=== PATIENT | male | born 1985 | race Caucasian/White ===

== ENCOUNTER 2017-05-08 09:48 | Emergency (ER) | payer BC ==
[2017-05-08 09:50] VITALS: BP 140/77
--- NOTE | 2017-05-08 10:20 | PHYS DOC ---
Past History Past Medical History: No Pertinent History Alcohol Use: None Drug Use: None Adult General Chief Complaint Chief Complaint: LACERATION/AVULSION HPI HPI 32-year-old male with no significant past medical history now status post minor injury to right hand and thumb. Patient was using a drill when the drill bit spun around and caused a deep scratch on his right thenar eminence. Minimal bleeding. No gross contamination. Now hemostatic. Patient also sustained a small injury of the radial aspect of his right thumb under the fingernail where a tiny amount of tissue was bluntly dissected or avulsed away from the fingernail. There is no subungual hematoma or actual fingernail avulsion just a small amount of dried blood in that area. Patient states his tetanus is up-to- date. He has normal strength, sensation and range of motion of the entire hand and thumb. No other complaint or injury Review of Systems Review of Systems Constitutional: Denies fever or chills [] Eyes: Denies change in visual acuity, redness, or eye pain [] HENT: Denies nasal congestion or sore throat [] Respiratory: Denies cough or shortness of breath [] Cardiovascular: No additional information not addressed in HPI [] GI: Denies abdominal pain, nausea, vomiting, bloody stools or diarrhea [] : Denies dysuria or hematuria [] Musculoskeletal: Denies back pain or joint pain [] Integument: Denies rash or skin lesions [] Neurologic: Denies headache, focal weakness or sensory changes [] Endocrine: Denies polyuria or polydipsia [] Physical Exam Physical Exam Trace amount of blood on the radial aspect of right thumbnail at the distal margin however this is hemostatic and there is no evidence of significant avulsion or subungual hematoma. 2 cm superficial excoriation right thenar eminence hemostatic on exam with no hematoma. Patient has normal painless range of motion, use, and function of the entire hand and thumb. Constitutional: Well developed, well nourished, no acute distress, non-toxic appearance. [] HENT: Normocephalic, atraumatic, bilateral external ears normal, oropharynx moist, no oral exudates, nose normal. [] Eyes:, conjunctiva normal, no discharge. [] Neck: Normal range of motion, no tenderness, supple, no stridor. [] Cardiovascular: No tachycardia [] Lungs & Thorax: Normal respiratory effort with no tachypnea [] Abdomen: Nondistended abdomen Skin: Warm, dry, no erythema, no rash. [] Back: Normal-appearing] Extremities: No tenderness, no cyanosis, no clubbing, ROM intact, no edema. [] Neurologic: Alert and oriented X 3, normal motor function, normal sensory function, no focal deficits noted. [] Psychologic: Affect normal, judgement normal, mood normal. [] Current Patient Data Vital Signs Vital Signs Date Time Temp Pulse Resp B/P (MAP) Pulse Ox O2 Delivery O2 Flow Rate FiO2 05/08/17 09:50 98.0 78 18 99 Room Air EKG EKG [] Radiology/Procedures Radiology/Procedures [] Course & Med Decision Making Course & Med Decision Making Pertinent Labs and Imaging studies reviewed. (See chart for details) Signs and symptoms consistent with minor superficial excoriation which is hemostatic and very minor avulsion injury with trace bleeding under the right thumbnail radial aspect. His hand is neurovascularly intact. Patient irrigated under the sink. No further workup or treatment indicated. Patient's tetanus is up to date. No further workup or treatment indicated. Patient agrees with outpatient follow-up. Strict return precautions given [] Dragon Disclaimer Dragon Disclaimer This chart was dictated in whole or in part using Voice Recognition software in a busy, high-work load, and often noisy Emergency Department environment. It may contain unintended and wholly unrecognized errors or omissions. Departure Departure: Disposition: 01 HOME, SELF-CARE Condition: GOOD Referrals: [facility] APRN (PCP) Patient Instructions: Laceration Care, Adult Additional Instructions: You have a small excoriation of your right hand. Excoriation is a superficial laceration that bleeds but does not require any wound repair like a deep scratch. It appears the you have a small avulsion of your nailbed of the right thumb. An avulsion is when the skin is old away from the nail from a blunt injury. This too does not require any repair but may be sore while its healing. Apply antibiotic ointment as needed well healing for comfort and to school dirt from the wounds. Cover as needed. Follow-up with your doctor in 2 days for wound check and return for signs of infection. ALEXANDER GERONIMO MD May 08, 2017 10:20
== END 2017-05-08 10:24 | disposition home or self-care (01) ==
LOC: ER 09:48
DX: S61.101A Unspecified open wound of right thumb with damage to nail, initial encounter (principal); W22.8XXA Striking against or struck by other objects, initial encounter; Y93.89 Activity, other specified; Y99.8 Other external cause status; Y92.89 Other specified places as the place of occurrence of the external cause
CPT/HCPCS: 99283

== ENCOUNTER 2021-05-17 13:10 | Emergency (ER) | payer BC ==
[~2021-05-17] VITALS: Ht 180.3 cm; Wt 122.0 kg
[2021-05-17 13:15] VITALS: BP 150/93
[2021-05-17] MEDS ORDERED: IV NORMAL SALINE 1,000ML 1,000 ML IV ONE (13:30)
--- NOTE | 2021-05-17 13:40 | PHYS DOC ---
Past History Past Medical History: No Pertinent History Past Surgical History: No Surgical History Alcohol Use: None Drug Use: None General Adult EDM: Chief Complaint: BLOODY STOOL HPI: HPI: 36-year-old male presents with bloody diarrhea. The patient started having diarrhea on Tuesday, nearly once an hour yesterday and then this morning. His last 3 episodes today had blood in them. It started as a pink tinge and became more daysi blood in the last 2 bowel movements. This made him concerned so he decided to come to the ER. Patient denies any new water sources such as a well or drinking stream. He has had no significant travel. He did have animal feces spilled onto him 6 days ago on Tuesday. He has not had symptoms like this before. He denies history of ulcerative colitis or Crohn's. He has also had a fever which improves with Tylenol. Review of Systems: Review of Systems: Constitutional: Fever Eyes: Denies change in visual acuity HENT: Denies nasal congestion or sore throat Respiratory: Denies cough or shortness of breath Cardiovascular: Denies chest pain or edema GI: Bloody diarrhea : Denies dysuria Musculoskeletal: Denies back pain or joint pain Integument: Denies rash Neurologic: Denies headache, focal weakness or sensory changes Endocrine: Denies polyuria or polydipsia Lymphatic: Denies swollen glands Psychiatric: Denies depression or anxiety Current Medications: Current Meds: Current Medications Medications (Trade) Dose Ordered Sig/Rafael Start Time Stop Time Status Last Admin Dose Admin Sodium Chloride 1,000 ml @ 1,000 mls/hr 1X ONCE 05/17/21 13:30 05/17/21 14:29 UNV Physical Exam: PE: Constitutional: Well developed, well nourished, no acute distress, non-toxic appearance. [] HENT: Normocephalic, atraumatic, bilateral external ears normal, oropharynx moist, no oral exudates, nose normal. [] Eyes: PERRLA, EOMI, conjunctiva normal, no discharge. [] Neck: Normal range of motion, no tenderness, supple, no stridor. [] Cardiovascular: Heart rate regular rhythm, no murmur [] Lungs & Thorax: Bilateral breath sounds clear to auscultation [] Abdomen: Bowel sounds normal, soft, mild right upper quadrant tenderness, no masses, no pulsatile masses. [] Skin: Warm, dry, no erythema, no rash. [] Back: No tenderness, no CVA tenderness. [] Extremities: No tenderness, no cyanosis, no clubbing, ROM intact, no edema. [] Neurologic: Alert and oriented X 3, normal motor function, normal sensory function, no focal deficits noted. [] Psychologic: Affect normal, judgement normal, mood normal. [] Current Patient Data: Vital Signs: Vital Signs Date Time Temp Pulse Resp B/P (MAP) Pulse Ox O2 Delivery O2 Flow Rate FiO2 05/17/21 13:15 98.2 69 16 150/93 98 Room Air EKG: EKG: [] Radiology/Procedures: Radiology/Procedures: [] Impressions: CT abdomen pelvis with contrast dated 05/17/2021. No comparison available. Clinical data indication: Bloody diarrhea. TECHNIQUE: Per contiguous axial imaging the abdomen pelvis performed after the administration of intravenous Omnipaque 300. One or more of the following individualized dose reduction techniques were utilized for this examination: 1. Automated exposure control 2. Adjustment of the mA and/or kV according to patient size 3. Use of iterative reconstruction technique FINDINGS: Limited images of the lung bases are clear. Heart size within normal limits. No pleural or pericardial effusion. Liver is of diffuse low density compatible with fatty infiltration. No apparent mass. Biliary tree normal in caliber. Gallbladder unremarkable. Spleen is normal in size. Pancreas, adrenal glands and kidneys are unremarkable. No hydronephrosis. Unopacified GI tract is normal in caliber. No focal bowel wall thickening. There is some subtle inflammatory stranding along the margin of the ascending colon on images 39 through 49. There is also some questionable mild wall thickening near the hepatic flexure. The appendix is normal in caliber. There are a few scattered diverticula within the distal colon. No adenopathy or ascites. Abdominal aorta normal in caliber. There are a few borderline enlarged ileocolic lymph nodes, nonspecific. Images of pelvis show nondistended urinary bladder. Prostate gland is normal in size. No free fluid. No pelvic adenopathy. Bone windows show no acute findings. Mild multilevel spondylosis. IMPRESSION: 1. Questionable mild wall thickening of the ascending colon and hepatic flexure with subtle inflammatory stranding in the paracolonic fat, nonspecific. This could be related to mild infectious or inflammatory colitis. 2. Otherwise no acute findings. Normal appendix. 3. Mild fatty infiltration of the liver. 4. There are a few borderline enlarged ileocolic lymph nodes, nonspecific. Electronically signed by: Chente Cummings MD (05/17/2021 2:38 PM) [id number] DICTATED AND SIGNED BY: CHENTE CUMMINGS MD DATE: 05/17/21 1434 CC: YONNY CRUZ DO; JENNIFER CONROY ~MTH0 0 Heart Score: C/O Chest Pain: N/A Risk Factors: Risk Factors: DM, Current or recent (<one month) smoker, HTN, HLP, family history of CAD, obesity. Risk Scores: Score 0 - 3: 2.5% MACE over next 6 weeks - Discharge Home Score 4 - 6: 20.3% MACE over next 6 weeks - Admit for Clinical Observation Score 7 - 10: 72.7% MACE over next 6 weeks - Early Invasive Strategies Course & Med Decision Making: Course & Med Decision Making Pertinent Labs and Imaging studies reviewed. (See chart for details) The patient's labs are unremarkable. His CT scan does show some thickening/stranding of the colon. See official read for more details. He did provide a very bloody stool sample in the ED. We have sent it for lab michael fraser. These lab studies will take some time to get results. This does appear to be infectious diarrhea, but antibiotics are not warranted at this time because it is not a severe case and the patient does not need to be hospitalized. Given it is bloody diarrhea, loperamide is not indicated. The patient may take Pepto-Bismol 30 mL up to 8 doses. He is stable for discharge at this time. Dragon Disclaimer: Dragdilip Disclaimer: This electronic medical record was generated, in whole or in part, using a voice recognition dictation system. Departure Departure: Impression: Primary Impression: Infectious diarrhea in adult patient Disposition: HOME / SELF CARE / HOMELESS Condition: STABLE Referrals: JENNIFER CONROY (PCP) Patient Instructions: Bloody Diarrhea YONNY CRUZ DO May 17, 2021 13:40
[2021-05-17] MEDS ORDERED: IOHEXOL 300 MG/ML 75 ML VIAL. IV ONE (14:00)
[2021-05-17 14:02] LABS: BASO % 0 % (0-3); EOS # 0.1 x10^3/uL (0.0-0.7); EOS % 1 % (0-3); LYMPH # 1.3 x10^3/uL (1.0-4.8); LYMPH % 18 % (24-48); MEAN CORPUSCULAR HEMOGLOBIN 31 pg (25-35); MEAN CORPUSCULAR HGB CONC 34 g/dL (31-37); MEAN CORPUSCULAR VOLUME 92 fL (79-100); MONO # 0.4 x10^3/uL (0.0-1.1); MONO % 6 % (0-9); NEUT # 5.5 x10^3uL (1.8-7.7); NEUT % 75 % (31-73); PLATELET COUNT 241 x10^3/uL (140-400); RED BLOOD COUNT 4.79 x10^6/uL (4.30-5.70); RED CELL DISTRIBUTION WIDTH 13.3 % (11.5-14.5); WHITE BLOOD COUNT 7.3 x10^3/uL (4.0-11.0)
[2021-05-17 14:10] LABS: CALCIUM 8.7 mg/dL (8.5-10.1); CREATININE 0.9 mg/dL (0.7-1.3); POTASSIUM 4.1 mmol/L (3.5-5.1)
[2021-05-17 14:17] LABS: ALBUMIN 3.7 g/dL (3.4-5.0); TOTAL BILIRUBIN 0.3 mg/dL (0.2-1.0); TOTAL PROTEIN 7.3 g/dL (6.4-8.2)
--- NOTE | 2021-05-17 14:41 | RAD ---
CT abdomen pelvis with contrast dated 05/17/2021. No comparison available. Clinical data indication: Bloody diarrhea. TECHNIQUE: Per contiguous axial imaging the abdomen pelvis performed after the administration of intr avenous Omnipaque 300. One or more of the following individualized dose reduction techniques were utilized for this examinat ion: 1. Automated exposure control 2. Adjustment of the mA and/or kV according to patient size 3. Use of iterative reconstruction technique FINDINGS: Limited images of the lung bases are clear. Heart size within normal limits. No pleural or pericardia l effusion. Liver is of diffuse low density compatible with fatty infiltration. No apparent mass. Biliary tree no rmal in caliber. Gallbladder unremarkable. Spleen is normal in size. Pancreas, adrenal glands and kidneys are unremarkable. No hydronephrosis. Unopacified GI tract is normal in caliber. No focal bowel wall thickening. There is some subtle infla mmatory stranding along the margin of the ascending colon on images 39 through 49. There is also some questionable mild wall thickening near the hepatic flexure. The appendix is normal in caliber. There are a few scattered diverticula within the distal colon. No adenopathy or ascites. Abdominal aorta n ormal in caliber. There are a few borderline enlarged ileocolic lymph nodes, nonspecific. Images of pelvis show nondistended urinary bladder. Prostate gland is normal in size. No free fluid. No pelvic adenopathy. Bone windows show no acute findings. Mild multilevel spondylosis. IMPRESSION: 1. Questionable mild wall thickening of the ascending colon and hepatic flexure with subtle inflammat ory stranding in the paracolonic fat, nonspecific. This could be related to mild infectious or inflam matory colitis. 2. Otherwise no acute findings. Normal appendix. 3. Mild fatty infiltration of the liver. 4. There are a few borderline enlarged ileocolic lymph nodes, nonspecific. Electronically signed by: Chente Cummings MD (05/17/2021 2:38 PM) [id number]
[2021-05-17 15:33] LABS: FECAL OB PT POSITIVE (NEG)
== END 2021-05-17 15:14 | disposition home or self-care (01) ==
LOC: ER 13:10
DX: A09 Infectious gastroenteritis and colitis, unspecified (principal)
CPT/HCPCS: 36415; 74177; 80053; 82274; 85025; 87177; 87209; 87505; 96360; 99285; J7030; Q9967